=== PATIENT | female | born 1995 | race Caucasian/White ===

== ENCOUNTER 2022-01-08 21:45 | Emergency (ER) | payer OTHER ==
[~2022-01-08] VITALS: Ht 157.5 cm; Wt 93.2 kg
[2022-01-08 22:38] VITALS: TEMP 98.2
[2022-01-08] MEDS ORDERED: MEDROL 4MG DOSPA4 MG PO (23:46)
[2022-01-08 23:58] VITALS: BP 135/79; PULSE 84
== END 2022-01-08 23:58 | disposition home or self-care (01) ==
LOC: COL.ER 21:45
DX: M54.16 Radiculopathy, lumbar region (principal)
CPT/HCPCS: J7512